=== PATIENT | male | born 1970 | race Caucasian/White ===

== ENCOUNTER 2021-03-21 15:16 | Emergency (ER) | payer BC, SELFPAY ==
[2021-03-21 15:24] VITALS: BP 100/81; PULSE 102; RESP 17; O2SAT 98; BMI 29.8
[2021-03-21 17:03] VITALS: PULSE 91; RESP 18; TEMP 37.6; O2SAT 98; BMI 30.5
--- NOTE | 2021-03-21 17:24 | HMH.EDUTC ---
[facility] [place] Clinical Impression: COVID-19 Disposition: Home, Self-Care Condition on Discharge: Good Instructions: DI for COVID-19 (Suspected or Confirmed ), Preventing the Spread of Coronavirus Discharge Instructions Additional Instructions: Drink plenty of fluids. Take tylenol or ibuprofen for pain or fever. Take the medications as directed. Follow up with your regular doctor. GO TO THE ER FOR ANY WORSENING SYMPTOMS Referrals: Radha Zuluaga MD [Primary Care Provider] - Time of Disposition: 18:17 Medical Decision Making - Medical Records Medical records reviewed: No: I reviewed the patient's medical records. - Adi Inquiry Pt receiving controlled substance: No Vital Signs: 03/21/21 15:24 03/21/21 17:03 03/21/21 18:19 Temperature 99.6 F 99.6 F Temperature Source Oral Pulse Rate 91 H Pulse Rate [Left Radial] 102 H 91 H Respiratory Rate 17 18 18 Blood Pressure 100/81 L Blood Pressure [Right Arm] 100/81 L Blood Pressure Mean [Right Arm] 87 02 Sat by Pulse Oximetry 98 98 Oxygen Delivery Method Room Air [facility] [place] - General Stated complaint: Covid+.Body aches,KEYS Fever Time Seen by Provider: 03/21/21 17:24 Mode of Arrival: Ambulatory Source of Information: Patient Limitations: No Limitations Description of Symptoms (Recalled from Triage Doc. by RN): pt c/o myalgia, KEYS, and fever. HEENT Symptoms (Recalled from RN notes): Yes (KEYS) Resp Symptoms (Recalled from RN notes): No Skin Symptoms (Recalled from RN notes): No MS Symptoms (Recalled from RN notes): No Functional Status (Recalled from RN notes): wnl - History of Present Illness Provider Complaint: He states that he tested positive for covid-19 on a home test yesterday. He is here for confirmation on this. He denies shortness of breath. - Related Data Allergies Allergy/AdvReac Type Severity Reaction Status Date / Time No Known Allergies Allergy Unverified 03/07/17 14:15 - Worker's Comp Is this a Worker's Comp case?: No [facility] History - Hepatitis A Screen Drug use history?: No High risk sexual behaviors?: No History of sexually transmitted infection?: No Currently employed?: No Childcare worker?: No Do you have indoor plumbing?: Yes Do you have electricity?: Yes Attestation statement:: This patient has been screened for Hepatitis A risk factors. I have reviewed the patient's past medical history: Yes ROS Obtained: Yes All systems reviewed & no additional complaints - Constitutional Constitutional: Reports as per HPI - Eyes Eyes: Denies eye discharge - ENT Ears, Nose, Mouth, and Throat: Reports as per HPI - Cardiovascular Cardiovascular: Denies chest pain - Respiratory Respiratory: Denies chest congestion, Reports cough, Denies dyspnea, Denies stridor, Denies wheezing Physical Exam - General General appearance: alert, in no apparent distress - Head Head exam: atraumatic, normocephalic, normal inspection - Eye Eye exam: Present: normal appearance, PERRL, EOMI - ENT ENT exam: Present: normal exam, normal oropharynx, mucous membranes moist, TM's normal bilaterally, normal external ear exam - Neck Neck exam: Present: normal inspection, full ROM, trachea midline. Absent: meningismus, lymphadenopathy - Chest Chest inspection: Present: normal inspection, symmetric chest wall rise. Absent: tenderness - Respiratory Respiratory exam: Present: normal lung sounds bilaterally. Absent: respiratory distress - Cardiovascular Cardiovascular exam: Present: regular rate, normal rhythm. Absent: JVD - Abdominal Exam Abdominal exam: Present: soft, normal bowel sounds. Absent: distention, tenderness, guarding - Extremities Exam Extremities exam: Present: normal inspection, full ROM, normal capillary refill. Absent: calf tenderness - Back Exam Back exam: Present: normal inspection. Absent: tenderness - Neurological Exam Neurological exam: Present: alert, oriented X3 - Psyc
[2021-03-21 18:19] VITALS: BP 100/81; PULSE 91; RESP 18; TEMP 37.6
== END 2021-03-21 18:21 | disposition home or self-care (01) ==
PROVIDERS: Emergency Provider Nurse Practitioner Family; PCP Family Medicine
DX: U07.1 COVID-19 (principal); R50.9 Fever, unspecified
CPT/HCPCS: 99202; C9803; G0463; U0003; U0005

== ENCOUNTER 2021-09-20 12:40 | Emergency (ER) | payer BC, SELFPAY ==
[2021-09-20] VITALS (8 sets, daily range): BP systolic 110–138; BP diastolic 71–86; PULSE 73–88; RESP 16–22; TEMP 36.5–36.6; O2SAT 85–100; BMI 29.7; BMI 29.8
--- NOTE | 2021-09-20 12:48 | HMH.EDABDPAI ---
ED Disposition Clinical Impression: Cholecystitis with cholelithiasis Qualifiers: Cholelithiasis location: gallbladder Cholecystitis acuity: acute Biliary obstruction: with biliary obstruction Qualified Code(s): K80.01 - Calculus of gallbladder with acute cholecystitis with obstruction Disposition: Xfer Short-Term Hosp Condition on Discharge: Fair Instructions: DI for Acute Abdominal Pain Referrals: Radha Zuluaga MD [Primary Care Provider] - Forms: Transfer Record - ED - Critical Care Critical Care Time: No Attestation: On 09/20/21, the high probability of a clinically significant, sudden or life threatening deterioration of the following system(s) required my full and direct attention, intervention and personal management. The time I documented below is in addition to time spent performing reported procedures but includes the following listed in this critical care notation. Medical Decision Making - Adi Inquiry Pt receiving controlled substance: No Vital Signs: 09/20/21 12:40 09/20/21 13:44 09/20/21 13:45 Temperature 97.7 F Temperature Source Oral Pulse Rate Pulse Rate [Radial] 83 Respiratory Rate 22 Blood Pressure Blood Pressure [Right Arm] 133/86 Blood Pressure Mean Blood Pressure Mean [Right Arm] 101 Blood Pressure Position Blood Pressure Position [Right Arm] Sitting 02 Sat by Pulse Oximetry 98 85 L 98 Oxygen Delivery Method Room Air Room Air Nasal Cannula Oxygen Flow Rate (LPM) 3 09/20/21 14:28 09/20/21 14:39 09/20/21 15:00 Temperature Temperature Source Pulse Rate 80 79 73 Pulse Rate [Radial] Respiratory Rate 16 18 18 Blood Pressure 115/74 110/71 116/74 Blood Pressure [Right Arm] Blood Pressure Mean 84 86 Blood Pressure Mean [Right Arm] Blood Pressure Position Sitting Blood Pressure Position [Right Arm] 02 Sat by Pulse Oximetry 99 100 97 Oxygen Delivery Method Nasal Cannula Nasal Cannula Nasal Cannula Oxygen Flow Rate (LPM) 2 2 09/20/21 15:30 09/20/21 17:18 Temperature 98 F Temperature Source Oral Pulse Rate 85 88 Pulse Rate [Radial] Respiratory Rate 16 16 Blood Pressure 116/80 138/81 Blood Pressure [Right Arm] Blood Pressure Mean 94 Blood Pressure Mean [Right Arm] Blood Pressure Position Sitting Blood Pressure Position [Right Arm] 02 Sat by Pulse Oximetry 95 Oxygen Delivery Method Nasal Cannula Room Air Oxygen Flow Rate (LPM) 2 - Lab Data Lab results reviewed: Yes: I reviewed the patient's lab results. Lab Results 09/20/21 12:55: WBC 12.8 H, RBC 6.05, Hgb 17.5, Hct 56.8 H, MCV 93.8, MCH 28.9, MCHC 30.8 L, RDW 13.2, Plt Count 396, MPV 7.7, Neut % (Auto) 86.0 H, Lymph % (Auto) 7.5 L, Brown % (Auto) 4.1, Eos % (Auto) 0.7, Baso % (Auto) 1.7, Neut # (Auto) 11.0 H, Lymph # (Auto) 1.0, Brown # (Auto) 0.5, Eos # (Auto) 0.1, Baso # (Auto) 0.2, Total Counted 100, Neutrophils % (Manual) 81 H, Lymphocytes % (Manual) 10, Monocytes % (Manual) 7, Eosinophils % (Manual) 2, Platelet Estimate Slight increase, RBC Morphology Normal 09/20/21 12:55: Sodium 140, Potassium 3.7, Chloride 103, Carbon Dioxide 29, Anion Gap 11.7, BUN 9, Creatinine 1.20, Estimated Creat Clear 105, Estimated GFR 64, Est GFR ( Amer) 78, Glucose 171 H, Calcium 9.4, Total Bilirubin 2.8 H, AST 40, ALT 37, Alkaline Phosphatase 44, Total Protein 7.7, Albumin 4.8, Globulin 2.9, Albumin/Globulin Ratio 1.7, Lipase 203 09/20/21 14:50: Urine Color Dk yellow, Urine Appearance Clear, Urine pH 7.5, Ur Specific [place] 1.015, Urine Protein Trace, Urine Glucose (UA) Negative, Urine Ketones 1+, Urine Blood Negative, Urine Nitrate Negative, Urine Bilirubin 1+ A, Urine Urobilinogen 1.0, Ur Leukocyte Esterase Negative, Urine RBC None, Urine WBC Occasional, Ur Squamous Epith Cells 3-5, Urine Bacteria Trace, Urine Mucus 1+ 09/20/21 15:33: Chlamy pneumoniae PCR Not detected, Adenovirus (PCR) Not detected, B. pertussis DNA (PCR) Not detected, Coronavirus OC43 (PCR) Not detected, Coronavir
[2021-09-20 13:01] LABS: Basophils # 0.2 K/mm3 (0-0.2); Basophils % 1.7 % (0.1-2.0); Eosinophils # 0.1 K/mm3 (0.0-0.4); Eosinophils % 0.7 % (0.1-12.0); Hematocrit 56.8 % (42.0-52.0); Hemoglobin 17.5 g/dL (14.1-18.0); Lymphocytes % 7.5 % (10-50); Mean Corpuscular HGB Conc 30.8 g/dL (31.8-35.4); Mean Corpuscular Hemoglobin 28.9 pg (27.0-31.2); Mean Corpuscular Volume 93.8 fl (80-94); Mean Platelet Volume 7.7 fl (7.4-10.4); Monocytes # 0.5 K/mm3 (0.1-1.0); Monocytes % 4.1 % (1.7-9.3); Platelet Count 396 K/mm3 (142-424); Red Blood Count 6.05 M/mm3 (4.60-6.20); Red Cell Distribution Width 13.2 % (11.5-17.5); White Blood Count 12.8 K/mm3 (4.8-10.8)
[2021-09-20 13:03] LABS: MANUAL DIFFERENTIAL MANUAL DIFFERENTIAL (MANUAL DIFF)
[2021-09-20 13:05] LABS: Chloride 103 mmol/L (98-107); Potassium 3.7 mmoL/L (3.5-5.1); Sodium 140 mmol/L (136-145)
[2021-09-20 13:07] LABS: Alanine Aminotransferase 37 U/L (12-78); Alkaline Phosphatase 44 U/L (38-126); Aspartate Amino Transferase 40 U/L (17-59); Bilirubin,Total 2.8 mg/dl (0.2-1.3); Blood Urea Nitrogen 9 mg/dl (9-20); Creatinine Clearance Estimated 105 mL/min (50-200); Estimated Glomerular Filt Rate 64 ml/min (>60); GFR (African American) 78 ML/MIN (>60)
[2021-09-20 13:08] LABS: Albumin Level 4.8 g/dl (3.5-5.0); Albumin/Globulin Ratio 1.7 (1.1-1.8); Anion Gap 11.7 mEq/L (5-15); Calcium 9.4 mg/dl (8.4-10.2); Carbon Dioxide 29 mmol/L (22.0-30.0); Globulin 2.9 g/dL (1.3-3.2); Glucose 171 mg/dl (74-100); Lipase 203 U/L (23-300); Total Protein,Serum 7.7 g/dl (6.3-8.2)
[2021-09-20 13:17] LABS: Eosinophils % 2 % (0-3); Lymphocytes % 10 % (10-50); Monocytes % 7 % (2-9); Neutrophils % 81 % (42-76); Platelet Estimate Slight Increase; RBC Morphology Normal; Total Cells Counted 100
--- NOTE | 2021-09-20 13:30 | PC.NURSE ---
pt given warm blankets
--- NOTE | 2021-09-20 13:36 | PC.NURSE ---
checked on pt at his time, pt reports pain medication has helped some he is no longer in angonizing pain. Pt has visitor at [facility] will continue to monitor
--- NOTE | 2021-09-20 13:56 | CT_ITS ---
PROCEDURE INFORMATION: Exam: CT Abdomen And Pelvis Without Contrast Exam date and time: 09/20/2021 2:05 PM Age: 50 years old Clinical indication: Abdominal pain; Epigastric; Patient HX: Patient had previous gallbladder attack reports pain feels the same; Additional info: Abdominal pain- right sided TECHNIQUE: Imaging protocol: Computed tomography of the abdomen and pelvis without contrast. Radiation optimization: All CT scans at this facility use at least one of these dose optimization techniques: automated exposure control; mA and/or kV adjustment per patient size (includes targeted exams where dose is matched to clinical indication); or iterative reconstruction. COMPARISON: ABDPELW/O CT ABD PELVIS W/O CONTRAST 03/16/2016 1:23 AM FINDINGS: Liver: Normal. Gallbladder and bile ducts: 2 cm calcified gallstone within the gallbladder neck region with mild gallbladder distention and minimal inflammatory stranding near the gallbladder neck, most compatible with early/mild cholecystitis. No biliary dilation. Pancreas: Normal. Spleen: Normal. Adrenal glands: Normal. No mass. Kidneys and ureters: Normal. Stomach and bowel: Normal. Appendix: Appendix normal. Intraperitoneal space: Unremarkable. No free air. No significant fluid collection. Vasculature: Multiple phleboliths within the pelvis. Lymph nodes: Unremarkable. No enlarged lymph nodes. Urinary bladder: Unremarkable as visualized. Reproductive: Unremarkable as visualized. Bones/joints: Multilevel thoracolumbar spine degenerative disc space narrowing and osteophyte formation, with associated central canal narrowing at the L3-L4 level. Soft tissues: Small bilateral fat containing inguinal hernias. IMPRESSION: 2 cm calcified gallstone within the gallbladder neck region with mild gallbladder distention and minimal inflammatory stranding near the gallbladder neck, most compatible with early/mild cholecystitis. No biliary dilation.
--- NOTE | 2021-09-20 14:31 | PC.NURSE ---
at bedside updated on plan of care
--- NOTE | 2021-09-20 14:39 | PC.NURSE ---
operator specialist communications paging dr. frazier
--- NOTE | 2021-09-20 14:42 | PC.NURSE ---
AILEEN NEWTON spoke with Dr. Kreuger
--- NOTE | 2021-09-20 14:51 | PC.NURSE ---
contacted [facility] per ER MD request to speak with GI doctor car construction superintendent, dry house wheeler at [place] states they do not have GI coverage today.
--- NOTE | 2021-09-20 14:57 | PC.NURSE ---
contacting [facility]
--- NOTE | 2021-09-20 15:00 | PC.NURSE ---
AILEEN NEWTON speaking with Dr. Ocasio at
[2021-09-20 15:02] LABS: Microscopic, Urine URINE MICROSCOPIC (MICROSCOPIC)
--- NOTE | 2021-09-20 15:04 | PC.NURSE ---
[facility] declined transfer
[2021-09-20 15:10] LABS: Appearance,Urine CLEAR (Clear); Blood, Urine Negative (Negative); Color,Urine DK YELLOW (Yellow); Glucose,Urine (UA) Negative (Negative); Ketones,Urine 1+ (Negative); Leukocyte Esterase,Urine Negative (Negative); Nitrate,Urine Negative (Negative); PH,Urine 7.5 (5.0-8.5); Protein,Urine TRACE (Negative); Specific Gravity, Urine 1.015 (1.005-1.030)
--- NOTE | 2021-09-20 15:30 | PC.NURSE ---
at bedside side rails up call light in reach
--- NOTE | 2021-09-20 15:30 | PC.NURSE ---
contacting [facility] regarding possible transfer
--- NOTE | 2021-09-20 15:32 | PC.NURSE ---
waiting yardage control clerk back from dr. leon at [facility]
--- NOTE | 2021-09-20 15:45 | PC.NURSE ---
AILEEN NEWTON speaking with dr. leon at [facility]
--- NOTE | 2021-09-20 15:48 | PC.NURSE ---
dr. leon at [facility] accepted pt on his end, states will need to speak with hospitalist. sealing and canceling machine operator at [facility] they will get hospitalist and call us back, states they do have available beds at this time.
[2021-09-20 15:49] LABS: Bilirubin,Urine 1+ (Negative)
--- NOTE | 2021-09-20 15:51 | PC.NURSE ---
contacted radiology for disc of pt images for possible transfer
[2021-09-20 15:53] LABS: Bacteria,Urine Trace /lpf; Mucus,Urine 1+ /lpf; WBC,Urine Occasional #/hpf (0-3)
[2021-09-20 15:57] LABS: Adenovirus,PCR Not Detected (NotDetected); Bordetella Pertussis Not Detected (NotDetected); Chlamydophila Pneumoniae, PCR Not Detected (NotDetected); Coronavirus 19, PCR Not Detected (NotDetected); Coronavirus 229E Not Detected (NotDetected); Coronavirus NL63 Not Detected (NotDetected); Coronavirus OC43 Not Detected (NotDetected); Coronovirus HKU1,PCR Not Detected (NotDetected); Human Metapneumovirus Not Detected (NotDetected); Influenza A, PCR Not Detected (NotDetected); Influenza AH1, 2009 Not Detected (NotDetected); Influenza AH1, PCR Not Detected (NotDetected); Influenza AH3,PCR Not Detected (NotDetected); Influenza B, PCR Not Detected (NotDetected); Mycoplasma Pneumoniae, PCR Not Detected (NotDetected); Parainfluenza 1, PCR Not Detected (NotDetected); Parainfluenza 2, PCR Not Detected (NotDetected); Parainfluenza 3, PCR Not Detected (NotDetected); Parainfluenza 4, PCR Not Detected (NotDetected); Respiratory Syncytial Virus Not Detected (NotDetected); Rhinovirus/Enterovirus Not Detected (NotDetected)
--- NOTE | 2021-09-20 15:58 | PC.NURSE ---
checked on pt at this time, family remains at [facility]. Pt resting in bed states no needs at this time. will continue to monitor
--- NOTE | 2021-09-20 16:23 | PC.NURSE ---
pt accepted to [facility] per hospitalist Dr. Munoz. Breana in transfer center request face sheet (face sheet faxed), states she will call back soon to get report.
--- NOTE | 2021-09-20 16:30 | PC.NURSE ---
updated on plan of care
--- NOTE | 2021-09-20 16:35 | PC.NURSE ---
PT AND FAMILY UPDATED ON PLAN OF CARE
--- NOTE | 2021-09-20 17:14 | PC.NURSE ---
report called to [facility]
== END 2021-09-20 17:20 | disposition short-term general hospital (02) ==
PROVIDERS: Emergency Provider Emergency Medicine; PCP Family Medicine
DX: K80.01 Calculus of gallbladder with acute cholecystitis with obstruction (principal); Z88.6 Allergy status to analgesic agent
CPT/HCPCS: 74176; 80053; 81001; 83690; 85007; 85025; 87581; 87632; 87798; 96365; 96372; 96375; 96376; 99284; C9803; J2405; J2543; U0003; U0005

== ENCOUNTER 2024-10-11 13:52 | Outpatient (CLI) | payer BC, SELFPAY ==
--- OUTSIDE RECORDS SUMMARY | 2024-10-11 13:55 | XMS_ITS | Clinical Summary ---
Author Organization [facility] Address [address] [place] [id number] Phone [email or web address] Care Team Providers Care Security Sales Manager Name Role Phone Jeremie Zuluaga Primary Care Provider [phone] Allergies Active Allergy Reactions Criticality Noted Date Comments Meperidine Nausea And Vomiting Medium 09/20/2021 Medications lisinopril (ZESTRIL) 10 MG tablet Take 10 mg by mouth 1 (one) time each day. 06/21/2023 Active Active Problems Problem Noted Date Diagnosed Date Alteration in skin integrity 08/14/2023 Examination for medicolegal reason 10/20/2009 Overview (08/16/2017): Routine general medical exam ination at a health care facility 11/28/2008 Overview (08/16/2017): Other examination of ears and hearing 08/28/2007 Overview (08/16/2017): Immunizations Immunization Administration Dates Next Due Tdap (ADACEL BOOSTRIX) ([id number]) 10/26/2022 Social History Tobacco Use Types Packs/Day Years Used Date Smoking Tobacco: Never Smokeless Tobacco: Never Tobacco Cessation:Counseling Given: Not Answered Intimate Partner Violence Answer Date R ecorded Insults You Not on file 06/30/2020 Threatens You Not on file 06/30/2020 Screams at You Not on file 06/30/2020 Physically Hurt Not on file 06/30/2020 Intimate Partner Violence Score Not on file 06/30/2020 Depression Answer Date Recorded PHQ Total Score 0 10/26/2022 Stress Answer Date Recorded Stress in your Life Not on file 01/22/2024 Dealing with Stress 3 01/22/2024 Sex and Gender Information Value Date Recorded Sex Assigned at Not on file Legal Sex Male 8:10 AM CDT Gender Identity Not on file Sexual Orientation Not on file Last Filed Vital Signs Vital Sign Reading Time Taken Comments Blood Pressure 130/86 08/15/2024 5:17 PM EDT Pulse 122 08/15/2024 5:17 PM EDT Temperature 36.7 C (98 F) 08/15/2024 5:17 PM EDT Respiratory Rate 16 08/11/2023 12:28 AM EDT Oxygen Saturation 96% 10/17/2023 5:20 PM EDT Inhaled Oxygen Concentration - - Weight 98.9 kg (218 lb) 10/17/2023 5:20 PM EDT Height 182.9 cm (6') 10/17/2023 5:20 PM EDT Body Mass Index 29.57 10/17/2023 5:20 PM EDT Plan of Treatment Health Maintenance Due Date Last Done Comments Dental Cleaning/Exam 1970 HIV Screening 1970 Hepatitis C Screening 1971 Annual Preventive Exam 10/06/1989 Hep B Infection Screening - Triple Screen 10/06/1989 Hepatitis B Immunization (1 of 3 - 19+ 3-dose series) 10/06/1990 Colorectal Cancer Screening 10/06/2001 Zoster Immunization (1 of 2) 10/06/2021 Covid-19 Immunization (1 - 2 25 season) 2023 Influenza Immunization (#1) 2024 12/19/2018 Tetanus Diphtheria and Pertu ssis Immunization (2 - Td or Tdap) 10/26/2032 10/26/2022 HIB Immunization Aged Out No longer e ligible based on patient's age to complete this topic HPV Immunization Aged Out No longer e ligible based on patient's age to complete this topic Hepatitis A Immunization Aged Out No longer eligible based on patient's age to complete this topic Pneumococcal: Ped (0 to 5 Yr s) and At-Risk Member (6 to 64 Yrs) Aged Out No longer e ligible based on patient's age to complete this topic Polio Immunization Aged Out No longer eligible based on patient's age to complete this topic Insurance OPT OUT NO COPAY NB Care Teams Security Sales Manager Relationship Specialty Start Date End Date Jeremie [place] [id number] PCP - General Family Medicine 10/26/22
--- OUTSIDE RECORDS SUMMARY | 2024-10-11 13:55 | XMS_ITS | Clinical Summary ---
Author Organization [facility] yste Address [address] [place] [address] Care Team Providers Care Diabetes Clinical Manager Name Role Phone Jeremie Zuluaga MD Primary Care Provider [phone] Allergies Active Allergy Reactions Criticality Noted Date Comments Meperidine Nausea And Vomiting Medium 09/20/2021 Medications ondansetron (Zofran) 4 MG tablet Take 1 tablet by mouth Every 8 (Eight) Hours As Needed for Nausea or Vomiting. 30 tablet 09/23/2021 12:50 PM EDT 09/23/2021 Active Resolved Problems Problem Noted Date Diagnosed Date Resolved Date Cholecystitis 09/20/2021 09/23/2021 Choledocholithiasis 09/20/2021 09/24/19 22 Overview (09/21/2021): Added automatically from request for surgery [id number] Social History Tobacco Use Types Packs/Day Years Used Date Smoking Tobacco: Former Smokeless Tobacco: Current Chew Tobacco Cessation:Counseling Given: No Alcohol Use Standard Drinks/Week Comments Never 0 (1 standard drink = 0.6 oz pur e alcohol) AUDIT-C Answer Date Recorded Q1: How often do you have a drink containing alc ohol? Monthly or less 09/20/2021 Q2: How many drinks containi ng alcohol do you have on a typical day when you are drinking? 1 or 2 09/20/2021 Q3: How often do you have si x or more drinks on one occasion? Never 09/20/2021 Abuse Screen Answer Date Recorded Unsafe at Home or Work/School Not on file Feels Threatened by Someone? Not on file 11/2022 Does Anyone Keep You from Co ntacting Others or Doint Things Outside the Home? Not on file 12/26/2022 Physical Sign of Abuse Present Not on file 1 Housing Stability Answer Date Recorded Current Living Arrangements Not on file 11/2022 Potentially Unsafe Housing Conditions Not on cal e 12/26/2022 Family and Community Support Answer Gerardo e Recorded Help with Day-to-Day Activities Not on file 12/26/2022 Lonely or Isolated Not on file 12/26/2022 Employment Answer Date Recorded Do you want help finding or keeping work or a priti b? Not on file 12/26/2022 Disabilities Answer Date Recorded Concentrating, Remembering, or Making Decisions Difficulty Not on file 12/26/2022 Doing Errands Independently Difficulty Not on fi le 12/26/2022 Education Answer Date Recorded Help with school or training? Not on file Preferred Language Not on file 12/26/2022 Sex and Gender Information Value Date Recorded Sex Assigned at Not on file Legal Sex Male 1:17 PM EDT Gender Identity Not on file Sexual Orientation Not on file Last Filed Vital Signs Vital Sign Reading Time Taken Comments Blood Pressure 123/85 09/23/2021 11:00 AM EDT Pulse 65 09/23/2021 11:00 AM EDT Temperature 36.8 C (98.3 F) 09/23/2021 11:00 AM EDT Respiratory Rate 18 09/23/2021 11:00 AM EDT Oxygen Saturation 95% 09/23/2021 11:00 AM EDT Inhaled Oxygen Concentration - - Weight 99.8 kg (220 lb) 09/21/2021 12:41 PM EDT 220 lb Height 185.4 cm (6' 1 ) 09/20/2021 7:04 PM EDT Body Mass Index 29.03 09/20/2021 7:04 PM EDT Plan of Treatment Health Maintenance Due Date Last Done Comments ANNUAL PHYSICAL 1970 HEPATITIS C SCREENING 1970 TDAP/TD VACCINES (1 - Tdap) 10/06/1990 COLOGUARD 10/06/2016 COLON CANCER SCREENING 5 YEAR SIGMOIDOSCOPY 10/06/2016 COLONOSCOPY 10/06/2016 COLORECTAL CANCER SCREENING 10/06/2016 CT COLONOGRAPHY 10/06/2016 FECAL OCCULT BLOOD TEST 10/06/2016 FIT Testing (1 year) 10/06/2016 Pneumococcal Vaccine 50+ (1 of 1 - PCV) 10/06/2021 ZOSTER VACCINE (1 of 2) 10/06/2021 COVID-19 Vaccine (1 - 2023- season) 2023 INFLUENZA VACCINE 12/18/2024 Medical Devices Implanted Type Area Side Laster Device Identifier Shelf Expiration Date Model / Serial / Lot Clipapplr M/ Endo Ligaclip Rot 12mm Lg - [id number] Implanted:Qty : 1 on 09/21/2021 by Naz Montes MD at [facility] Implant N/A: Abdomen [employer] J [employer] J [id number] 02/16/2026 [id number] / / [id number] Hemost Abs Surgicel 2x3 - [id number] Implanted:Qty : 1 on 09/21/2021 by Naz Montes MD at [facility] Implant N/A: Abdomen [employer] J [employer] J [id number] 04/19/2025 1952 / / [id number] Insurance PPO Advance Directives * CPR (Attempt to Resuscitate) (Latest Code Status on File) Date Activated Date Inactivated Comments 09/20/2021 8:25 PM 09/23/2021 3:28 PM Question Answer Comments Code Status (Patient has no pulse and is not breathing): CPR (Attempt to Resuscitate) Medical Interventions (Patie nt has pulse or is breathing): Full Support Level Of Support Discussed With: Patient Care Teams Diabetes Clinical Manager Relationship Specialty Start Date End Date Jeremie Zuluaga MD [address] [place] [address] PCP - General Family Medicine 09/20/21
== END 2024-10-11 14:57 | disposition home or self-care (01) ==
LOC: INF 13:54
PROVIDERS: PCP Nurse Practitioner; Visit Provider Nurse Practitioner
DX: D45 Polycythemia vera (principal)
CPT/HCPCS: 99195; G0463

== ENCOUNTER 2024-11-08 12:52 | Outpatient (CLI) | payer BC, SELFPAY ==
--- OUTSIDE RECORDS SUMMARY | 2024-11-08 12:57 | XMS_ITS | Clinical Summary ---
Author Organization [facility] Address [address] [place] [id number] Phone [email or web address] Care Team Providers Care Biology Instructor Name Role Phone Jeremie Zuluaga Primary Care Provider [phone] Allergies Active Allergy Reactions Criticality Noted Date [...] Health Maintenance Due Date Last Done Comments CT Colonography 1971 Colonoscopy 1971 Colorectal Cancer Screening Combo 1971 DNA Cologuard 1971 Dental Cleaning/Exam 1971 FIT or FOBT Test 1971 HIV Screening 1971 Hepatitis C Screening 1971 Sigmoidoscopy 1971 Annual Preventive Exam 10/06/1989 Hep B Infection Screening - Triple Screen 10/06/1989 Hepatitis B Immunization (1 of 3 - 19+ 3-dose series) 10/06/1990 Zoster Immunization (1 of 2) 10/06/2021 Covid-19 Immunization (1 - 2 -25 season) 2023 Influenza Immunization (#1) 2024 12/19/2018 [...] OPT OUT NO COPAY NB Care Teams Biology Instructor Relationship Specialty Start Date End Date Jeremie Zuluaga [address] [place] [id number] PCP - General Family Medicine 10/26/22
--- OUTSIDE RECORDS SUMMARY | 2024-11-08 12:57 | XMS_ITS | Clinical Summary ---
Author Organization [facility] yste Address [address] [place] [address] Care Team Providers Care Mineral Engineer Name Role Phone Jeremie Zuluaga MD Primary Care Provider [phone] Allergies Active Allergy Reactions Criticality Noted Date [...] (09/21/2021): Added automatically from request for surgery [id number] Social History Tobacco Use Types Packs/Day Years [...] VACCINE 12/18/2024 Medical Devices Implanted Type Area Traffic Control Flagger Device Identifier Shelf Expiration Date Model / Serial / Lot Clipapplr M/ Endo Ligaclip Rot 12mm Lg - [id number] Implanted:Qty : 1 on 09/21/2021 by Naz Montes MD at [facility] Implant N/A: Abdomen [employer] J [id number] 02/16/2026 [id number] / / [id number] Hemost Abs Surgicel 2x3 - [id number] Implanted:Qty : 1 on 09/21/2021 by Naz Montes MD at [facility] Implant N/A: Abdomen [employer] J [id number] 04/19/2025 1952 / / [id number] Insurance PPO Advance Directives * CPR (Attempt to Resuscitate) (Latest Code Status on File) Date Activated Date Inactivated Comments 09/20/2021 8:25 PM 09/23/2021 3:28 PM Question Answer Comments Code Status (Patient has no pulse and is not breathing): CPR (Attempt to Resuscitate) Medical Interventions (Patie nt has pulse or is breathing): Full Support Level Of Support Discussed With: Patient Care Teams Mineral Engineer Relationship Specialty Start Date End Date Jeremie Zuluaga MD [address] [place] [address] PCP - General Family Medicine 09/20/21
[2024-11-08 13:07] VITALS: BMI 29.2
--- NOTE | 2024-11-08 13:08 | PC.NURSE ---
1308candis henriquez paperboard machine operator collected labs via venipuncture stick in left wrist with butterfly needle;will wait on labs'
[2024-11-08 13:14] LABS: Hematocrit 58.0 % (42.0-52.0)
[2024-11-08 13:22] LABS: Hemoglobin 20.1 g/dL (14.1-18.0)
[2024-11-08 13:59] VITALS: BP 140/94; PULSE 86; RESP 18; O2SAT 96
[2024-11-08 14:10] VITALS: BP 143/99; PULSE 88; RESP 18; O2SAT 95
== END 2024-11-08 14:10 | disposition home or self-care (01) ==
LOC: INF 12:54
PROVIDERS: PCP Nurse Practitioner; Visit Provider Nurse Practitioner
DX: D75.1 Secondary polycythemia (principal)
CPT/HCPCS: 36415; 85014; 85018; 99195; 99211; G0463

== ENCOUNTER 2024-11-29 12:51 | Outpatient (CLI) | payer BC, SELFPAY ==
--- NOTE | 2024-11-29 12:54 | PC.NURSE ---
1254-collected labs via venipuncture stick in left ac with butterfly; pt to get therapeutic phlebotomy if hgb >17
--- OUTSIDE RECORDS SUMMARY | 2024-11-29 12:56 | XMS_ITS | Clinical Summary ---
Author Organization [facility] Address [address] [place] [address] Phone CareEverywhereSuppor [email or web address] Care Team Providers Care Sprayer Insecticide Name Role Phone Jeremie Zuluaga Primary Care Provider [phone] Allergies Active Allergy Reactions Criticality Noted Date [...] Covid-19 Immunization (1 - 2 -25 season) 2024 Influenza Immunization (#1) 2024 12/19/2018 Tetanus Diphtheria [...] OPT OUT NO COPAY NB Care Teams Sprayer Insecticide Relationship Specialty Start Date End Date Jeremie Zuluaga [address] [place] [address] PCP - General Family Medicine 10/26/22
--- OUTSIDE RECORDS SUMMARY | 2024-11-29 12:56 | XMS_ITS | Clinical Summary ---
Author Organization [facility] yste Address [address] [place] [address] Care Team Providers Care Corrective And Manual Arts Therapist Name Role Phone Jeremie Zuluaga MD Primary Care Provider [phone] Allergies Active Allergy Reactions Criticality Noted Date [...] (09/21/2021): Added automatically from request for surgery [id number] Social History Tobacco Use Types Packs/Day Years [...] of 2) 10/06/2021 COVID-19 Vaccine (1 - season) 2024 INFLUENZA VACCINE 12/18/2024 Medical Devices Implanted Type Area Valance Cutter Device Identifier Shelf Expiration Date Model / Serial / Lot Clipapplr M/ Endo Ligaclip Rot 12mm Lg - [id number] Implanted:Qty : 1 on 09/21/2021 by Naz Montes MD at [facility] Implant N/A: Abdomen ETH[employer] DIV OF J AND J [id number] 02/16/2026 [id number] / / [id number] Hemost Abs Surgicel 2x3 - [id number] Implanted:Qty : 1 on 09/21/2021 by Naz Montes MD at [facility] Implant N/A: Abdomen ETHICON DIV OF J AND J [id number] 04/19/2025 1952 / / [id number] Insurance PPO Advance Directives * CPR (Attempt to Resuscitate) (Latest Code Status on File) Date Activated Date Inactivated Comments 09/20/2021 8:25 PM 09/23/2021 3:28 PM Question Answer Comments Code Status (Patient has no pulse and is not breathing): CPR (Attempt to Resuscitate) Medical Interventions (Patie nt has pulse or is breathing): Full Support Level Of Support Discussed With: Patient Care Teams Corrective And Manual Arts Therapist Relationship Specialty Start Date End Date Jeremie Zuluaga MD [address] [place] [address] PCP - General Family Medicine 09/20/21
[2024-11-29 13:09] LABS: Hematocrit 59.0 % (42.0-52.0)
[2024-11-29 13:44] LABS: Hemoglobin 20.5 g/dL (14.1-18.0)
[2024-11-29 14:22] VITALS: BP 130/93; PULSE 96; RESP 18; O2SAT 96
[2024-11-29 15:10] VITALS: BP 122/81; PULSE 103; RESP 18; O2SAT 96
== END 2024-11-29 15:10 | disposition home or self-care (01) ==
LOC: INF 12:52
PROVIDERS: PCP Nurse Practitioner; Visit Provider Nurse Practitioner
DX: D75.1 Secondary polycythemia (principal)
CPT/HCPCS: 36415; 85014; 85018; 99195

== ENCOUNTER 2024-12-20 12:29 | Outpatient (CLI) | payer BC, SELFPAY ==
--- OUTSIDE RECORDS SUMMARY | 2024-12-20 12:31 | XMS_ITS | Clinical Summary ---
Author Organization [facility] Address [address] [place] [address] Phone CareEverywhereSuppor [email or web address] Care Team Providers Care Forest Pathology Professor Name Role Phone Jeremie Zuluaga Primary Care Provider [phone] Allergies Active Allergy Reactions Criticality Noted Date [...] of 3 - 19+ 3-dose series) 10/06/1990 Pneumococcal: 50+ Years (1 o f 1 - PCV) 10/06/2021 Zoster Immunization (1 of 2) 10/06/2021 Covid-19 Immunization (1 - 2 024-25 season) 2024 Influenza Immunization (#1) 2024 12/19/2018 [...] OPT OUT NO COPAY NB Care Teams Forest Pathology Professor Relationship Specialty Start Date End Date Jeremie Zuluaga [address] [address] PCP - General Family Medicine 10/26/22
--- OUTSIDE RECORDS SUMMARY | 2024-12-20 12:31 | XMS_ITS | Clinical Summary ---
Author Organization [facility] yste Address [address] [place] [address] Care Team Providers Care High School Sports Coach Name Role Phone Jeremie Zuluaga MD Primary Care Provider [phone] Allergies Active Allergy Reactions Criticality Noted Date [...] (09/21/2021): Added automatically from request for surgery [id number] Social History Tobacco Use Types Packs/Day Years [...] 10/06/2021 ZOSTER VACCINE (1 of 2) 10/06/2021 INFLUENZA VACCINE 10/18/2024 Medical Devices Implanted Type Area Court Bailiff Or Sheriff Device Identifier Shelf Expiration Date Model / Serial / Lot Clipapplr M/ Endo Ligaclip Rot 12mm Lg - [id number] Implanted:Qty : 1 on 09/21/2021 by Naz Montes MD at [facility] Implant N/A: Abdomen [employer] ENDO SURG[employer] DIV OF J AND J [id number] 02/16/2026 [id number] / / [id number] Hemost Abs Surgicel 2x3 - [id number] Implanted:Qty : 1 on 09/21/2021 by Naz Montes MD at [facility] Implant N/A: Abdomen ETH[employer]ON DIV OF J AND J [id number] 04/19/2025 1952 / / [id number] Insurance PPO Advance Directives * CPR (Attempt to Resuscitate) (Latest Code Status on File) Date Activated Date Inactivated Comments 09/20/2021 8:25 PM 09/23/2021 3:28 PM Question Answer Comments Code Status (Patient has no pulse and is not breathing): CPR (Attempt to Resuscitate) Medical Interventions (Patie nt has pulse or is breathing): Full Support Level Of Support Discussed With: Patient Care Teams High School Sports Coach Relationship Specialty Start Date End Date Jeremie Zuluaga MD [address] [place] [address] PCP - General Family Medicine 09/20/21
--- NOTE | 2024-12-20 12:38 | PC.NURSE ---
Pt presents for phlebotomy/labs. Venipuncture performed using butterfly access needle x 1 stick to pt's lt ac-blood drawn. Needle withdrawn and site secured with 2x2 gauze and coban. Specimen sent to lab
[2024-12-20 12:42] LABS: Hematocrit 53.0 % (42.0-52.0)
[2024-12-20 13:05] LABS: Hemoglobin 18.5 g/dL (14.1-18.0)
[2024-12-20 13:20] VITALS: BP 139/84; PULSE 92; RESP 20; TEMP 36.6; O2SAT 95
[2024-12-20 13:42] VITALS: BP 139/89; PULSE 93; RESP 20; O2SAT 96
== END 2024-12-20 23:59 | disposition home or self-care (01) ==
LOC: INF 12:29
PROVIDERS: PCP Nurse Practitioner; Visit Provider Nurse Practitioner
DX: D75.1 Secondary polycythemia (principal)
CPT/HCPCS: 36415; 85014; 85018; 99195

== ENCOUNTER 2025-01-17 11:47 | Outpatient (CLI) | payer BC, SELFPAY ==
--- OUTSIDE RECORDS SUMMARY | 2025-01-17 11:49 | XMS_ITS | Clinical Summary ---
Author Organization [facility] yste Address [address] [place] [address] Care Team Providers Care Hvac Engineering Technician Name Role Phone Jeremie Zuluaga MD Primary Care Provider [phone] Allergies Active Allergy Reactions Criticality Noted Date [...] (09/21/2021): Added automatically from request for surgery [id number] Social History Tobacco Use Types Packs/Day Years [...] VACCINE 10/18/2024 Medical Devices Implanted Type Area Cattle Tester Device Identifier Shelf Expiration Date Model / Serial / Lot Clipapplr M/ Endo Ligaclip Rot 12mm Lg - [id number] Implanted:Qty : 1 on 09/21/2021 by Naz Montes MD at [facility] Implant N/A: Abdomen [employer] ENDO SURGERY DIV OF J AND J [id number] 02/16/2026 [id number] / / [id number] Hemost Abs Surgicel 2x3 - [id number] Implanted:Qty : 1 on 09/21/2021 by Naz Montes MD at [facility] Implant N/A: Abdomen ETH[employer]ON DIV OF J AND J [id number] 04/19/2025 1952 / / [id number] Insurance PPO Advance Directives * CPR (Attempt to Resuscitate) (Latest Code Status on File) Date Activated Date Inactivated Comments 09/20/2021 8:25 PM 09/23/2021 3:28 PM Question Answer Comments Code Status (Patient has no pulse and is not breathing): CPR (Attempt to Resuscitate) Medical Interventions (Patie nt has pulse or is breathing): Full Support Level Of Support Discussed With: Patient Care Teams Hvac Engineering Technician Relationship Specialty Start Date End Date Jeremie Zuluaga MD [address] [place] [address] PCP - General Family Medicine 09/20/21
--- OUTSIDE RECORDS SUMMARY | 2025-01-17 11:49 | XMS_ITS ---
Author Organization Unknown ENCOUNTERS Encounter Performer Location Date Diagnosis Diagnosis Status Emergency [facility] [place] [address] [place] [address] [id number] XS Emergency [facility] Col[facility] [place] [address] [place] [address] [id number] *Note: Encounters from your own facility or health system may be excluded. Allergies, Adverse Reactions, Alerts Allergen Type Severity Identification Date meperidine drug allergy 0 [id number] Medications Name Date Quantity Days Supplied GPI Number
--- OUTSIDE RECORDS SUMMARY | 2025-01-17 11:50 | XMS_ITS | Clinical Summary ---
Author Organization [facility] Address [address] [place] [address] Phone [email or web address] [email or web address] Care Team Providers Care Plant Mechanic Name Role Phone Jeremie Zuluaga Primary Care Provider [phone] Allergies Active Allergy Reactions Criticality Noted Date [...] OPT OUT NO COPAY NB Care Teams Plant Mechanic Relationship Specialty Start Date End Date Jeremie Zuluaga [address] [address] PCP - General Family Medicine 10/26/22
[2025-01-17 11:59] LABS: Hematocrit 53.2 % (42.0-52.0)
[2025-01-17 12:05] LABS: Hemoglobin 18.3 g/dL (14.1-18.0)
--- NOTE | 2025-01-17 13:28 | PC.NURSE ---
hemoglobin 18.3 on todays labs. 500ml blood drawn off via 18g in left wrist from [id number]. phlebotomy performed by jose stanford from lab. BP post precedure, 141/91. pt tolerated well. IV removed and coban applied.
== END 2025-01-17 23:59 | disposition home or self-care (01) ==
LOC: INF 11:48
PROVIDERS: PCP Nurse Practitioner; Visit Provider Nurse Practitioner
DX: D75.1 Secondary polycythemia (principal)
CPT/HCPCS: 36415; 85014; 85018; 99195

== ENCOUNTER 2025-01-31 10:37 | Outpatient (CLI) | payer BC, SELFPAY ==
--- OUTSIDE RECORDS SUMMARY | 2025-01-31 10:42 | XMS_ITS | Clinical Summary ---
Author Organization [facility] Address [address] [place] [address] Phone [email or web address] [email or web address] Care Team Providers Care Flower Machine Operator Name Role Phone Jeremie Zuluaga Primary Care Provider [phone] Allergies Active Allergy Reactions Criticality Noted Date [...] 2) 10/06/2021 Covid-19 Immunization (1 - 2 025-26 season) 2024 Influenza Immunization (#1) 2024 12/19/2018 [...] OPT OUT NO COPAY NB Care Teams Flower Machine Operator Relationship Specialty Start Date End Date Jeremie Zuluaga [address] [address] PCP - General Family Medicine 10/26/22
--- OUTSIDE RECORDS SUMMARY | 2025-01-31 10:42 | XMS_ITS | Clinical Summary ---
Author Organization [facility] yste Address [address] [place] [address] Care Team Providers Care Pillowcase Folder Name Role Phone Jeremie Zuluaga MD Primary Care Provider [phone] Allergies Active Allergy Reactions Criticality Noted Date [...] (09/21/2021): Added automatically from request for surgery [id number] Social History Tobacco Use Types Packs/Day Years [...] VACCINE 10/18/2024 Medical Devices Implanted Type Area Service Observer Chief Device Identifier Shelf Expiration Date Model / Serial / Lot Clipapplr M/ Endo Ligaclip Rot 12mm Lg - [id number] Implanted:Qty : 1 on 09/21/2021 by Naz Montes MD at [facility] Implant N/A: Abdomen [employer] ENDO SURG[employer] DIV OF J AND J [id number] 02/16/2026 [id number] / / [id number] Hemost Abs Surgicel 2x3 - [id number] Implanted:Qty : 1 on 09/21/2021 by Naz Montes MD at [facility] Implant N/A: Abdomen ETH[employer]ON DIV OF J AND J [id number] 04/19/2025 1952 / / [id number] Insurance PPO Advance Directives * CPR (Attempt to Resuscitate) (Latest Code Status on File) Date Activated Date Inactivated Comments 09/20/2021 8:25 PM 09/23/2021 3:28 PM Question Answer Comments Code Status (Patient has no pulse and is not breathing): CPR (Attempt to Resuscitate) Medical Interventions (Patie nt has pulse or is breathing): Full Support Level Of Support Discussed With: Patient Care Teams Pillowcase Folder Relationship Specialty Start Date End Date Jeremie Zuluaga MD [address] [place] [address] PCP - General Family Medicine 09/20/21
[2025-01-31 10:52] LABS: Hematocrit 50.9 % (42.0-52.0); Hemoglobin 17.3 g/dL (14.1-18.0); Immature Granulocytes % 0.2 %; Mean Corpuscular HGB Conc 34.0 g/dL (31.8-35.4); Mean Corpuscular Hemoglobin 30.6 pg (27.0-31.2); Mean Corpuscular Volume 89.9 fl (80-94); Nucleated Red Blood Cells % 0 %; Platelet Count 293 K/mm3 (142-424); Red Blood Count 5.66 M/mm3 (4.60-6.20); Red Cell Distribution Width-SD 41.0 fL; White Blood Count 8.6 K/mm3 (4.8-10.8)
== END 2025-01-31 23:59 | disposition home or self-care (01) ==
LOC: LAB 10:37
PROVIDERS: PCP Nurse Practitioner; Visit Provider Internal Medicine Medical Oncology
DX: D75.1 Secondary polycythemia (principal)
CPT/HCPCS: 36415; 85025